=== PATIENT | female | born 1945 | race African-American/Black ===

== ENCOUNTER 2017-08-03 06:29 | Emergency (ER) | payer MEDICARE ==
[2017-08-03 07:33] LABS: BASOPHILS 0.1 % (0-2); EOSINOPHILS 0.3 % (0-7); HEMATOCRIT 36.6 % (36.0-48.0); HEMOGLOBIN 12.4 g/dL (12-16); IMMATURE GRANULOCYTES 0.2 % (0-5); LYMPHOCYTES 13.2 % (15-50); MCH 34.4 pg (26.0-34.0); MCHC 33.9 g/dL (31.0-37.0); MCV 101.7 fL (80.0-100.0); MEAN PLATELET VOLUME 10.1 fL (7.4-10.4); MONOCYTES 8.5 % (2-11); NEUTROPHILS 77.7 % (40-80); PLATELET COUNT 187 10x3/uL (130-400); RDW 14.9 % (11.5-14.5); WBC 12.1 10x3/uL (4.8-10.8)
[2017-08-03 07:49] LABS: CALC OSMOLALITY 284 mosm/kg (275-300); CALCIUM 8.4 mg/dL (8.5-10.1); CARBON DIOXIDE 31.8 mmol/L (21.0-32.0); CHLORIDE - SERUM 103 mmol/L (98-107); CREATININE - SERUM 0.7 mg/dL (0.6-1.3); GLUCOSE 112 mg/dL (74-106); SODIUM 143 mmol/L (136-145); UREA NITROGEN 10 mg/dL (7-18); eGFR NON AFRICAN AMERICAN 87 mL/min (90-120)
[2017-08-03 07:56] LABS: POTASSIUM - SERUM 2.4 mmol/L (3.5-5.1)
== END 2017-08-03 11:11 | disposition home or self-care (01) ==
LOC: D.ER 06:29
PROVIDERS: Family Medicine
DX: M62.838 Other muscle spasm (principal); E87.6 Hypokalemia; E83.42 Hypomagnesemia; I10 Essential (primary) hypertension; Z91.19 Patient's noncompliance with other medical treatment and regimen